=== PATIENT | male | born 1955 ===

== ENCOUNTER 2024-06-04 20:25 | Emergency (ER) | payer BC, MEDICARE ==
[2024-06-04 20:58] LABS: BASOPHILS PERCENT AUTO 0.3 % (0.0-1.0); EOSINOPHILS PERCENT AUTO 2.9 % (1.0-3.0); HEMATOCRIT 43.7 % (40.0-54.0); HEMOGLOBIN 14.2 g/dL (14.0-18.0); LYMPHOCYTES PERCENT AUTO 29.9 % (20.5-50.1); MEAN CORPUSCULAR HGB CONC 32.5 g/dL (33.0-35.0); MEAN CORPUSCULAR VOLUME 92.2 fL (80-100); NEUTROPHILS PERCENT AUTO 58.9 % (42.2-75.2); PLATELET COUNT,PLT 149 10^3/uL (150-450); RED BLOOD CELL COUNT 4.74 10^6/uL (4.6-6.2); WHITE BLOOD CELL COUNT,WBC 7.9 10^3/uL (5.0-10.0)
[2024-06-04 21:41] LABS: PROTHROMBIN TIME 10.3 SEC (9.0-12.0); PTT,PARTIAL THROMBOPLSTIN TIME 23.9 SEC (22.0-34.0)
[2024-06-04 21:58] LABS: A/G RATIO 0.8; ALBUMIN 3.5 g/dL (3.4-5.0); BILIRUBIN TOTAL 1.8 mg/dL (0.2-1.0); BUN/CREATININE RATIO 17.8 (No establ ref range); CALCIUM 9.7 mg/dL (8.5-10.1); CREATININE 1.29 mg/dL (0.70-1.30); EST CRCL DRUG DOSING (CG) 56.68 mL/min; PROTEIN TOTAL,TP 7.9 g/dL (6.4-8.2)
== END 2024-06-04 23:55 | disposition home or self-care (01) ==
LOC: DL.ED 20:25
DX: S00.01XA Abrasion of scalp, initial encounter (principal); Z88.1 Allergy status to other antibiotic agents; Z88.8 Allergy status to other drugs, medicaments and biological substances; Z79.4 Long term (current) use of insulin; Z79.01 Long term (current) use of anticoagulants; Z79.899 Other long term (current) drug therapy; W05.0XXA Fall from non-moving wheelchair, initial encounter
CPT/HCPCS: 36415; 70450; 71046; 72125; 80053; 84484; 85025; 85610; 85730; 93005; 93010; 99284; 99285

== ENCOUNTER 2024-12-19 23:15 | Emergency (ER) | payer MEDICARE ==
[2024-12-20 00:04] LABS: ANION GAP 12.5 mEq/L (7-13); BLOOD UREA NITROGEN,BUN 22 mg/dL (7-18); CALCIUM 9.4 mg/dL (8.5-10.1); CARBON DIOXIDE,CO2 31 mmol/L (21-32); CHLORIDE,CL 103 mmol/L (98-107); CREATININE 1.15 mg/dL (0.70-1.30); ESTIMATED GFR 68 mL/min (>=60); GLUCOSE RANDOM 99 mg/dL (70-99); MAGNESIUM 1.3 mg/dL (1.8-2.4); POTASSIUM,K 3.5 mmol/L (3.5-5.1); SODIUM,NA 143 mmol/L (136-145)
[2024-12-20] MEDS ORDERED: Sodium Chloride 0.9% 10 ML Syringe FLUSH PRN (00:29)
[2024-12-20] MEDS: Magnesium Sulf/Wat 2 GM/50 mL 2 GM in Premix Bag 1 BAG IV ONE (00:34)
== END 2024-12-20 02:25 | disposition home or self-care (01) ==
LOC: DL.ED 23:15
DX: T38.3X1A Poisoning by insulin and oral hypoglycemic [antidiabetic] drugs, accidental (unintentional), initial encounter (principal); I10 Essential (primary) hypertension; E78.00 Pure hypercholesterolemia, unspecified; E11.9 Type 2 diabetes mellitus without complications; Z95.5 Presence of coronary angioplasty implant and graft; Z79.01 Long term (current) use of anticoagulants; Z79.4 Long term (current) use of insulin; Z79.899 Other long term (current) drug therapy; Z88.8 Allergy status to other drugs, medicaments and biological substances; Z88.1 Allergy status to other antibiotic agents
CPT/HCPCS: 36415; 80048; 82947; 83735; 96374; 99283; 99284; J3475